=== PATIENT | male | born 1985 | race Caucasian/White ===

== ENCOUNTER 2021-08-21 09:58 | Emergency (ER) | payer BC ==
[~2021-08-21] VITALS: Ht 185.4 cm; Wt 86.4 kg
[2021-08-21 10:04] VITALS: BP 120/84
[2021-08-21] MEDS ORDERED: AUGMENTIN 875-1 EAC1 PO (10:15)
[2021-08-21] MEDS ORDERED: GOOD NEIGHBOR200 M1 PO (10:15)
== END 2021-08-21 10:58 | disposition home or self-care (01) ==
LOC: ED 09:58
DX: S61.210A Laceration without foreign body of right index finger without damage to nail, initial encounter (principal); W26.0XXA Contact with knife, initial encounter

== ENCOUNTER → 2024-11-04 | Outpatient (CLI) | payer BC ==
[~2024-11-04] MED LIST: AUGMENTIN 875-1 EAC1 PO; GOOD NEIGHBOR200 M1 PO; Iohexol 300 - 100 ML VIAL IV ONE; NS 100 ML IV ONE
== END ==
LOC: RAD 12:58
DX: N20.0 Calculus of kidney (principal)
CPT/HCPCS: Q9967